=== PATIENT | female | born 1980 | race American Indian/Alaskan Native ===

== ENCOUNTER 2017-01-18 05:55 | Day surgery (SDC) | payer MEDICAID ==
[2017-01-18] MEDS ORDERED: WATER FOR IRRIG STERILE IR ONE ×2 (07:32→11:39)
[2017-01-18] MEDS ORDERED: NACL 0.9% 1000 ML 1,000 ML IV SCH (09:00)
--- NOTE | 2017-01-18 09:56 | Anesthesia Day of Surgery ---
Anesthesia Day of Surgery - Day of Surgery Patient Examined: Yes Patient H&P Reviewed: Yes Patient is NPO: Yes
--- NOTE | 2017-01-18 09:56 | Anesthesia Consultation ---
Anesthesia Consult and Med Hx Date of service: 01/18/17 - Airway Anesthetic Teeth Evaluation: Good ROM Head & Neck: Adequate Mental/Hyoid Distance: Adequate Mallampati Class: Class III Intubation Access Assessment: Possibly Difficult - Pulmonary Exam CTA: Yes - Cardiac Exam Cardiac Exam: RRR - Pre-Operative Health Status ASA Pre-Surgery Classification: ASA3 Proposed Anesthetic Plan: MAC - Pre-Anesthesia Comment Pre-Anesthesia Comments: Rheumatoid Arthiritis - Other Systems Hx Obesity: Yes
--- NOTE | 2017-01-18 10:47 | Discharge Summary ---
Providers - Providers Date of discharge: 01/18/17 Attending physician: LEYDI TANNER Hospitalization Condition: Stable Disposition: DISCHARGED TO HOME OR SELFCARE Core Measure Documentation - Palliative Care Palliative Care/ Comfort Measures: Not Applicable - Core Measures Any of the following diagnoses?: none Exam - Constitutional Vitals: Temp Pulse Resp BP Pulse Ox 98.3 F 82 16 123/71 98 01/18/17 08:58 01/18/17 08:58 01/18/17 08:58 01/18/17 08:58 01/18/17 08:58 General appearance: Present: no acute distress, well-nourished - EENT Eyes: Present: PERRL ENT: hearing intact, clear oral mucosa - Neck Neck: Present: supple, normal ROM - Respiratory Respiratory effort: normal Respiratory: bilateral: CTA - Cardiovascular Heart Sounds: Present: S1 & S2. Absent: rub, click - Extremities Extremities: pulses symmetrical, No edema Peripheral Pulses: within normal limits - Abdominal General gastrointestinal: Present: soft, non-tender, non-distended, normal bowel sounds - Integumentary Integumentary: Present: clear, warm, dry - Musculoskeletal Musculoskeletal: gait normal, strength equal bilaterally - Psychiatric Psychiatric: appropriate mood/affect, intact judgment & insight - Neurologic Neurologic: CNII-XII intact, moves all extremities Plan Activity: no restrictions Weight Bearing Status: Full Weight Bearing Diet: low carbohydrate
[2017-01-18] MEDS ORDERED: DIPRIVAN 10 MG/ML IV ONE (10:49)
[2017-01-18 11:31] VITALS: BP 117/77
--- NOTE | 2017-01-18 12:35 | Post Anesthesia Evaluation ---
- Post Anesthesia Evaluation Patient Participated: Yes Airway Patent: Yes Stable Respiratory Function: Yes Nausea/Vomiting: No Temp > 96.8F: Yes Pain Manageable: Yes Adequeate Hydration: Yes Anesthesia Complications: No Block Receding Appropriately: Not Applicable Patient on Ventilator: No
--- NOTE | 2017-01-18 13:06 | Operative Report ---
ATTENDING SURGEON: Anibal Henry MD [employer] SPECIALIST: Arturo Machado MD PREOPERATIVE DIAGNOSES: Dyspepsia and obesity. POSTOPERATIVE DIAGNOSES: Hiatal hernia and obesity. PROCEDURE PERFORMED: Esophagogastroduodenoscopy. INDICATION FOR PROCEDURE: The patient is a 36-year-old female who is undergoing workup for bariatric surgery. She complains of dyspepsia and after discussing risks and benefits of the procedure, she decided to consent for it. DESCRIPTION OF PROCEDURE: The patient was brought to the endoscopic suite and placed in the left lateral position on the stretcher. MAC anesthesia was induced by the anesthesia team. Timeout was called. The patient and the procedure were correct. So, we proceeded to insert the endoscope into the oropharynx, down to the esophagus, stomach, and duodenum that was slowly retrieved assessing the mucosa circumferentially. No gross mucosal abnormality of the first and second portion of the duodenum were visualized. Then, it was retrieved into the antrum of the stomach and the antrum and body of the stomach was within normal limits. Then, the endoscope was retroflexed visualizing the fundus and the hiatus. The fundus of the stomach had no mucosal abnormalities and there was a small to medium size hiatal hernia visualized. Then, the scope was deflected again and stomach was reduced. The endoscope was retrieved into the esophagus assessing the mucosa, no gross abnormalities were visualized, and then the endoscope was retrieved into the oropharynx and mouth. The patient tolerated very well the procedure and was sent to the recovery room. JOB# [id number] MARLON/SHYLA CARRASCO
== END 2017-01-18 05:56 | disposition home or self-care (01) ==
LOC: GIO 05:55
PROVIDERS: ATTEND Specialist
DX: K44.9 Diaphragmatic hernia without obstruction or gangrene (principal); K21.9 Gastro-esophageal reflux disease without esophagitis; M06.9 Rheumatoid arthritis, unspecified; E66.01 Morbid (severe) obesity due to excess calories; Z68.43 Body mass index [BMI] 50.0-59.9, adult; Z98.51 Tubal ligation status; Z83.3 Family history of diabetes mellitus; Z80.9 Family history of malignant neoplasm, unspecified; Z82.49 Family history of ischemic heart disease and other diseases of the circulatory system; Z82.3 Family history of stroke; Z83.49 Family history of other endocrine, nutritional and metabolic diseases
CPT/HCPCS: 43235; 81025; J2704

== ENCOUNTER 2017-02-01 09:30 | Inpatient (IN) | payer MEDICAID ==
[2017-01-18 07:24] LABS: Basophils % (Auto) 0.8 % (0.0-1.8); Hematocrit 38.8 % (30.3-42.9); Hemoglobin 12.8 gm/dl (10.1-14.3); Mean Corpuscular HGB Conc 33 % (30-34); Mean Corpuscular Hemoglobin 27 pg (28-32); Mean Corpuscular Volume 83 fl (79-97); Platelet Count 233 K/mm3 (140-440); Red Blood Count 4.69 M/mm3 (3.65-5.03); White Blood Count 5.4 K/mm3 (4.5-11.0)
[2017-01-18 07:41] LABS: Alanine Aminotransferase 16 units/L (7-56); Albumin 3.7 g/dL (3.9-5); Albumin/Globulin Ratio 1.2 %; Alkaline Phosphatase 36 units/L (35-129); Anion Gap 17 mmol/L; Bilirubin,Total 0.5 mg/dL (0.1-1.2); Blood Urea Nitrogen 10 mg/dL (7-17); Carbon Dioxide 22 mmol/L (22-30); Glucose 90 mg/dL (65-100); Sodium 137 mmol/L (137-145); Total Protein 6.9 g/dL (6.3-8.2)
--- NOTE | 2017-01-18 07:49 | Anesthesia Consultation ---
Anesthesia Consult and Med Hx Date of service: 01/18/17 (Scheduled for Gastric Sleeve with Dr. Henry on ) - Airway Anesthetic Teeth Evaluation: Good ROM Head & Neck: Adequate Mental/Hyoid Distance: Adequate Mallampati Class: Class III Intubation Access Assessment: Possibly Difficult - Pulmonary Exam CTA: Yes - Cardiac Exam Cardiac Exam: RRR - Pre-Operative Health Status ASA Pre-Surgery Classification: ASA3 Proposed Anesthetic Plan: General - Pre-Anesthesia Comment Pre-Anesthesia Comments: No previous anesthesia complications. Medical clearance on chart from 09/20/16. MPI and Echo done 08/09/16. No ischemia. EF ~65-70%. - Pulmonary Hx Smoking: No Hx Asthma: No Hx Sleep Apnea: No - Cardiovascular System Hx Hypertension: No Hx Coronary Artery Disease: No Hx Cardia Arrhythmia: No Hx Peripheral Vascular Disease: No - Central Nervous System Hx Neuromuscular Disorder: No (SLE/RA) Hx Seizures: No CVA: No Hx Psychiatric Problems: No - Gastrointestinal Hx Gastroesophageal Reflux Disease: No - Endocrine Hx Renal Disease: No Hx Non-Insulin Dependent Diabetes: No Hx Thyroid Disease: No - Hematic Hx Anemia: Yes - Other Systems Hx Obesity: Yes (BMI=52)
--- NOTE | 2017-02-04 11:02 | Admit Criteria Form ---
Admission Criteria Documentation: AMBULATORY SURGERY EXCEPTION CRITERIA Ambulatory Surgery Exception Criteria ( Place 'X' for any and all applicable criteria): Surgery or procedure performed on ambulatory basis may require inpatient stay for[A] ANY ONE of the following(1)(2)(3)(4)(5)(6)(7)(8)(9): [X] I. A preoperative situation, condition, or finding that warrants inpatient stay as indicated by ANY ONE of the following: [] a) Inpatient care needed because of severity of a disease or condition rather than the surgery (eg, severe cardiac or respiratory disease, severe infection) (15) (16 ) (17) (18) [] b) Emergent procedure (eg, angioplasty for acute ischemia)(19) [] c) Complex surgical approach or situation as indicated by ANY ONE of the following(3): [] i) Open approach needed instead of usual endoscopic, transcatheter, or other less invasive procedure [] ii) Difficult approach because of previous operation [] iii) Airway monitoring required after open neck procedures(20)(21) [] iv) Large mass requiring unusually extensive dissection [] v) Additional complicating feature requiring inpatient care (eg, drain management)(22(23): [X] d) Major surgery in a pt with high anesthetic risk as indicated by ANY ONE of the following (2)(3)(5)(7)(8): [X] i) ASA risk class III or higher (severe systemic disease impairing function) [D] [] ii) Advanced age (eg, older than 85 years)(14)(24) [] iii) Symptomatic heart failure(25) [] iv) Symptomatic asthma or COPD(8)(21) [] v) Morbid obesity with hemodynamic or respiratory problems(20)( 21)(26)(27) [] vi) Obstructive sleep apnea(20)(21) [] vii) Former premature infants who are younger than 60 weeks [] viii) High risk for severe postoperative abnormalities (eg, severe postoperative hypocalcemia after parathyroidectomy for severe hyperparathyroidism)(27)( 28) [] ix) Unstable angina(25) [] e) Drug-related risk requiring inpatient stay as indicated by ANY ONE of the following(5)(10)(14)(32)(33) [] i) Procedure requires discontinuing drugs or other therapy (eg , antiarrhythmic medication, antiseizure medication), which necessitates inpatient observation or treatment.(18)(31) [] ii) Major surgery and high risk drug use as indicated by ANY ONE of the following: [] 1) Active abuse of cocaine or similar drug [] 2) Monoamine oxidase inhibitor use [] 3) Other drug identified as posing risk [] f) Inadequate outpatient care situation as indicated by ANY ONE of the following(5)(10)(14)(32)(33) [] i) Patient lives remote from medical facility and procedure has urgent complication potential, and temporary nearby residence cannot be arranged [] ii) Patient will have postprocedure incapacitation and inadequate assistance at home, or alternative level of care cannot be arranged. [] iii) Patient will have long general anesthesia or procedure side effect resolution time, and competent person to stay with patient on first postoperative night at home or alternative level of care cannot be arranged. []iv) Other inadequate outpatient situation that cannot be handled by other means [] II. A perioperative event, condition, or finding that warrants inpatient stay as indicated by ANY ONE of the following (1)(2)(3): [] a) Inadequate physiologic recovery: cardiovascular, respiratory, or hemodynamic status not normal or near preoperative baseline(18) [] b) Hemodynamic instability [] c) Patient not alert with near normal or baseline mental status [] d) Temperature not normal or as expected and not appropriate for outpatient treatment of condition [] e) Ambulatory or appropriate activity level status not yet achieved post procedure [E](34)(35)(36) [] f) Operative site not appropriate (eg, unexpected or excessive drainage or bleeding) [] g) Postoperative effects not resolved or adequately managed (eg, significant pain or vomiting not appropriate for outpatient or next level of care)(10)(12) [] h) Complicating features requiring inpatient care as indicated by ANY ONE of the following(37): [] i) Severe complications of procedure (eg, bowel injury, airway compromise, vascular injury,severe hemorrhage) [] ii) Extensive (eg, dissection far beyond usual scope of procedure ) or prolonged (eg, 120 minutes beyond usual) surgery needed requiring inpatient postoperative care [] iii) Conversion to an open or complex procedure that requires inpatient care (eg, open vs laparoscopic cholecystectomy, abdominal vs vaginal hysterectomy)(38) [] iv) Comorbid condition or test result identified during or post procedure that requires inpatient care (7) [] v) Malignant hyperthermia(30) [] vi) Other complicating feature requiring inpatient care(22)(23) Inpatient stay may be needed until ALL of the following are present (1)(2)(3)(4) (5)(6)(10)(14)(33)(40): []a) Physiologic recovery: cardiovascular, respiratory, and hemodynamic status normal or near preoperative baseline []b) Hemodynamic stability []c) Patient alert, with near normal or baseline mental status []d) Temperature appropriate: patient afebrile or temperature appropriate for outpt treatment of condition []e) Activity level appropriate: ambulatory or appropriate activity level post procedure []f) Operative site appropriate as indicated by ALL of the following: []i) Site dry or with expected drainage []ii) Any blood noted is as expected for procedure. []g) Postoperative effects resolved or managed as indicated by ALL of the following: []i) Pain management appropriate for outpatient (or next level of) care(10) []ii) Minimal nausea and vomiting: if present, successfully treated with oral medication(12) []iii) Headache, dizziness, or drowsiness (if present) are mild. []h) Voiding status acceptable as indicated by ANY ONE of the following: []i) Voiding spontaneously []ii) No voiding but instructions given for follow-up in 6 to 8 hours []iii) Urinary catheter in place, and instructions given for follow-up []i) Complicating features requiring inpatient care manageable at a lower level of care(37) []j) Comorbid conditions manageable at a lower level of care(37) The original [employer] content created by [employer] has been revised. The portions of the content which have been revised are identified through the use of italic text or in bold, and [facility] [email or web address] has neither reviewed nor approved the modified material. All other unmodified content is copyright [employer]. Please see references footnoted in the original [employer] edition 2016 Admission Criteria Met: Yes
[2017-02-07] MEDS ORDERED: ZOFRAN IV PRN (20:04)
[2017-02-07] MEDS ORDERED: LACTATED RINGERS 1,000 ML IV SCH (21:00)
[2017-02-08] MEDS ORDERED: NACL 0.9% 1000 ML 1,000 ML IV SCH (06:00)
[2017-02-08] MEDS ORDERED: TRANSDERM-SCOP TD NR (06:00)
[2017-02-08] MEDS ORDERED: VERSED IV NR (06:00)
[2017-02-08] MEDS ORDERED: PEPCID IV NR (06:00)
[2017-02-08] MEDS ORDERED: REGLAN IV NR (06:00)
[2017-02-08] MEDS ORDERED: ZOFRAN IV PRN (06:55)
[2017-02-08] MEDS ORDERED: ANCEF/STERILE WATER 2 GM/20 ML 2 GM/20 ML SYRINGE IV NR (07:00)
[2017-02-08] MEDS ORDERED: LOVENOX SUB-Q NR (07:00)
[2017-02-08] MEDS ORDERED: NORCO PO PRN (07:00)
[2017-02-08] MEDS ORDERED: FLAGYL 500 MG/100 ML 500 MG/100 ML BAG IV NR (07:00)
[2017-02-08] MEDS ORDERED: ePHEDrine SULFATE ONE (08:35)
[2017-02-08] MEDS ORDERED: QUELICIN ONE (08:38)
[2017-02-08] MEDS ORDERED: DIPRIVAN 10 MG/ML IV ONE (08:38)
[2017-02-08] MEDS ORDERED: SUBLIMAZE ONE (08:38)
[2017-02-08] MEDS ORDERED: XYLOCAINE MPF 2% ONE (08:39)
[2017-02-08] MEDS ORDERED: ZEMURON IV ONE (08:39)
[2017-02-08] MEDS ORDERED: MARCAINE-EPI 0.5%-1:200,000 INFILTRATI ONE (08:42)
[2017-02-08] MEDS ORDERED: XYLOCAINE 1% 20 mL INFILTRATI ONE (08:42)
[2017-02-08] MEDS ORDERED: NACL 0.9% IR ONE ×2 (08:43)
[2017-02-08] MEDS ORDERED: LACTATED RINGERS 1,000 ML IV SCH (09:00)
[2017-02-08] MEDS ORDERED: ZOFRAN ONE (09:00)
[2017-02-08] MEDS ORDERED: NEOSTIGMINE ONE (09:00)
[2017-02-08] MEDS ORDERED: ROBINUL ONE (09:01)
[2017-02-08] MEDS: DILAUDID IV PRN ×4 (09:26→10:28)
--- NOTE | 2017-02-08 12:48 | Anesthesia Day of Surgery ---
Anesthesia Day of Surgery - Day of Surgery Patient Examined: Yes Patient H&P Reviewed: Yes Patient is NPO: Yes
[2017-02-08 12:56] LABS: Alanine Aminotransferase 26 units/L (7-56); Albumin 3.3 g/dL (3.9-5); Albumin/Globulin Ratio 1.1 %; Alkaline Phosphatase 31 units/L (35-129); Anion Gap 20 mmol/L; Bilirubin,Total 0.2 mg/dL (0.1-1.2); Blood Urea Nitrogen 8 mg/dL (7-17); Calcium 7.6 mg/dL (8.4-10.2); Carbon Dioxide 20 mmol/L (22-30); Chloride 101.3 mmol/L (98-107); Glucose 123 mg/dL (65-100); Potassium 4.1 mmol/L (3.6-5.0); Sodium 137 mmol/L (137-145); Total Protein 6.4 g/dL (6.3-8.2)
[2017-02-08 13:15] LABS: Basophils % (Auto) 0.3 % (0.0-1.8); Eosinophils % (Auto) 0.1 % (0.0-4.3); Hematocrit 40.1 % (30.3-42.9); Hemoglobin 12.8 gm/dl (10.1-14.3); Mean Corpuscular HGB Conc 32 % (30-34); Mean Corpuscular Hemoglobin 27 pg (28-32); Mean Corpuscular Volume 84 fl (79-97); Platelet Count 204 K/mm3 (140-440); Red Blood Count 4.76 M/mm3 (3.65-5.03); Red Cell Distribution Width 14.3 % (13.2-15.2); White Blood Count 10.7 K/mm3 (4.5-11.0)
[2017-02-08] MEDS: MORPHINE IV PRN ×2 (15:03→20:30)
[2017-02-09 08:21] VITALS: BP 130/83
[2017-02-09] MEDS: MORPHINE IV PRN (08:30)
[2017-02-09] MEDS ORDERED: LOVENOX SUB-Q SCH (10:00)
[2017-02-09 10:29] LABS: Basophils % (Auto) 0.4 % (0.0-1.8); Eosinophils % (Auto) 1.2 % (0.0-4.3); Hematocrit 38.5 % (30.3-42.9); Hemoglobin 12.6 gm/dl (10.1-14.3); Mean Corpuscular HGB Conc 33 % (30-34); Mean Corpuscular Hemoglobin 27 pg (28-32); Mean Corpuscular Volume 83 fl (79-97); Platelet Count 212 K/mm3 (140-440); Red Blood Count 4.64 M/mm3 (3.65-5.03); Red Cell Distribution Width 14.5 % (13.2-15.2); White Blood Count 6.5 K/mm3 (4.5-11.0)
[2017-02-09 10:48] LABS: Alanine Aminotransferase 22 units/L (7-56); Albumin 3.3 g/dL (3.9-5); Alkaline Phosphatase 32 units/L (35-129); Anion Gap 19 mmol/L; BUN/Creatinine Ratio 8.33; Bilirubin,Total 0.4 mg/dL (0.1-1.2); Blood Urea Nitrogen 5 mg/dL (7-17); Calcium 8.2 mg/dL (8.4-10.2); Carbon Dioxide 22 mmol/L (22-30); Chloride 99.5 mmol/L (98-107); Glucose 81 mg/dL (65-100); Potassium 4.1 mmol/L (3.6-5.0); Sodium 136 mmol/L (137-145); Total Protein 6.6 g/dL (6.3-8.2)
--- NOTE | 2017-02-09 12:12 | Discharge Summary ---
Providers - Providers Date of Admission: 02/08/17 06:02 Date of discharge: 02/09/17 Attending physician: LEYDI TANNER Hospitalization Reason for admission: overnight observation Condition: Stable Hospital course: patient admitted for overnight observation after surgery ready for discharge on POD1 Disposition: STILL A PATIENT Core Measure Documentation - Palliative Care Palliative Care/ Comfort Measures: Not Applicable - Core Measures Any of the following diagnoses?: none Exam - Physical Exam Narrative exam: NAD Lungd CTA BL Heart RRR Abd, soft, some TTP around wounds. Wounds c/d/i Neuro AAOx3 - Constitutional Vitals: Temp Pulse Resp BP Pulse Ox 98.5 F 101 H 20 130/83 99 02/09/17 07:00 02/09/17 07:00 02/09/17 07:00 02/09/17 07:00 02/09/17 09:42 Plan Activity: advance as tolerated Diet: other (bariatric stage 1) Wound: open to air Special Instructions: no heavy lifting Follow up with: THONY BRUNER [Other] - 7 Days
[2017-02-09 14:19] LABS: Magnesium 1.9 mg/dL (1.7-2.3); Phosphorous 3.3 mg/dL (2.5-4.5)
== END 2017-02-09 13:14 | disposition home or self-care (01) | DRG 327 ==
LOC: 3A 02-08 06:02 → 2B-SURG 02-08 10:22
PROVIDERS: ADMIT Specialist; ATTEND Specialist
PROC: 0DB64Z3 Excision of Stomach, Percutaneous Endoscopic Approach, Vertical (ICD-10-PCS; principal; 2017-02-08)
PROC: 0BQS4ZZ (ICD-10-PCS; principal; 2017-02-08)
PROC: 0BQR4ZZ (ICD-10-PCS; principal; 2017-02-08)
DX: K21.9 Gastro-esophageal reflux disease without esophagitis (principal); M05.49 Rheumatoid myopathy with rheumatoid arthritis of multiple sites; Z68.43 Body mass index [BMI] 50.0-59.9, adult; E66.01 Morbid (severe) obesity due to excess calories; E63.1 Imbalance of constituents of food intake; Z98.51 Tubal ligation status; Z82.49 Family history of ischemic heart disease and other diseases of the circulatory system; Z83.3 Family history of diabetes mellitus; K44.9 Diaphragmatic hernia without obstruction or gangrene
CPT/HCPCS: 36415; 80053; 81025; 83735; 84100; 85025; 88307; A4217; C9250; J0330; J1170; J1650; J2250; J2270; J2405; J2704; J2710; J2765; J3010; J7030; J7120